=== PATIENT | male | born 1950 ===

== ENCOUNTER → 2017-09-19 13:16 | Outpatient (REF) | payer MEDICARE, OTHER, SELFPAY | LOC: LAB 13:16 | PROVIDERS: Visit Provider Otolaryngology | DX: H66.3X2 Other chronic suppurative otitis media, left ear (principal) | CPT/HCPCS: 87070; 87077; 87186; 87205 ==

== ENCOUNTER → 2017-11-14 13:46 | Outpatient (REF) | payer MEDICARE, OTHER, SELFPAY | LOC: LAB 13:46 | PROVIDERS: Visit Provider Otolaryngology | DX: H95.11 Chronic inflammation of postmastoidectomy cavity (principal); H66.3X2 Other chronic suppurative otitis media, left ear | CPT/HCPCS: 87070; 87077; 87186; 87205 ==